=== PATIENT | female | born 1950 | race Caucasian/White ===

== ENCOUNTER 2017-04-10 11:53 | Inpatient (IN) | payer OTHER ==
--- NOTE | ~2017-04-10 | DS ---
Unit #: [id number] #: [id number] Patient: SELENA WALDEN [id number] [address] [place], [place] [address] [id number] I MR#: [id number] NAME: SELENA WALDEN ROOM: 453 Age: 66 Sex: F Admission Date: 04/10/2017 : 1950 Discharge Date: Attending Physician: Perri Levine M.D. Primary Care Physician: No Primary Care Physician DISCHARGE SUMMARY DISCHARGE DIAGNOSES 1. Fall with left hip fracture status post left hip cephalomedullary nail. 2. Postop acute blood loss anemia. 3. Hypokalemia. 4. History of rheumatoid lung with recurrent pleural effusion, following Dr. Mendiola. 5. Hyperlipidemia. 6. Hypertension. 7. History of intracranial aneurysm status post clipping. 8. History of lung nodule right base, following Dr. Mendiola. 9. History of thoracic 12 compression fracture. 10. Smoking. CONSULTATIONS 1. Dr. Mendiola. 2. Dr. Dowd. 3. Dr. Michael Su for cardiac clearance. PROCEDURES Patient had left hip cephalomedullary nail with Segundo natural nail. DIAGNOSTIC TESTING LAB DATA: Sodium 138, potassium 4, creatinine 0.5, calcium 8.3. WBC 6.7, hemoglobin 9.5, platelets 251. Urine culture is negative. ALLERGIES None. DISCHARGE MEDICATIONS 1. Lisinopril/Hydrochlorothiazide 20/12.5 mg 1 tablet p.o. daily. 2. Lovenox 40 mg subcu daily. Stop 04/25/2017. 3. Milk of Magnesia 30 mL q.6 p.r.n. constipation. 4. Lipitor 10 daily. 5. Allopurinol 300 daily. 6. Multivitamin 1 tablet daily. 7. Lortab 7.5 mg 1 tablet q.4 p.r.n. pain. 8. B complex capsule 1 capsule daily. HOSPITALIZATION COURSE A 66 year old admitted because of fall. Fall with left hip fracture. Patient was seen by Dr. Dowd. The patient had surgery. Currently patient is ambulating with physical therapy. They Unit #: [id number] #: [id number] Patient: SELENA WALDEN recommend home with home health. Acute postop blood loss anemia. Currently no active bleeding. Patient received blood transfusion. Hemoglobin 9.5. Hypokalemia. Replaced with p.o. potassium. History of COPD with lung nodule. Follow with Dr. Mendiola as an outpatient. DISCHARGE PLAN 1. Discharge home. 2. Follow with family physician in 1 week time. 3. Follow with Dr. Dowd in 2 weeks' time. 4. Weightbearing (1) as per orthopedics. 5. Patient will be discharged with home health. NOTE: Discharge time taken is 31 minutes. Dictated by... Radha Zavala TD: 04/15/2017 13:08 JOB #: [id number] DISCHARGE SUMMARY Page 1 of 1 X Perri Levine MD X DISCHARGE SUMMARY
--- NOTE | ~2017-04-10 | CO ---
Unit #: [id number] #: [id number] Patient: SELENA WALDEN [id number] [facility]. [place], [place] [address] [id number] I MR#: [id number] NAME: SELENA WALDEN ROOM: 94822 Age: 66 Sex: F Admission Date: 04/10/2017 : 1950 Attending Physician: Laura Nunez M.D. Primary Care Physician: No Primary Care Physician CONSULTATION REPORT REASON FOR CONSULTATION Cardiac clearance. 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 She denies ever having a myocardial infarction, cardiac cath, or a 2D echocardiogram. The patient has a past medical history of hypertension, hyperlipidemia, and a history of a brain coiling approximately 12 years ago. She does endorse that she smokes one pack of cigarettes per day. Patient states that she did have two falls today. The first fall occurred at home while she says she was in a hurry and got tripped up on her feet. She states that she fell, did not hit her head and was able to get up and felt like she had no injury. She did not lose consciousness, have a syncopal episode, or feel dizzy at that time. Later in the day while she was at work, she tripped while changing a cat water bowl. Again, she states that she just became tripped over her feet. She did not lose consciousness, experience any dizziness or syncope. She does report that she tripped over a pet approximately 10 years ago and broke both of her wrists. Patient currently denies any nausea, vomiting, fever, chills, chest pain, or shortness of air. She does state she is experiencing pain in her left hip. While in the emergency department, her vital signs were essentially stable. However, her blood pressure was 168/79 which likely can be attributed to pain. Her laboratory results were essentially normal. A urinalysis is pending. Chest x-ray showed findings consistent with a lung nodule. X-ray of her hip shows a fracture. Cardiology was consulted for clearance. PAST MEDICAL HISTORY 1. Brain aneurysm 12 years ago with coiling. 2. Hypertension. 3. Hyperlipidemia. 4. History of falls. PAST SURGICAL HISTORY 1. Repair of both of her wrists after a fall. 2. Brain aneurysm coiling. ALLERGIES No known allergies. HOME MEDICATIONS 1. Allopurinol 300 mg p.o. daily. Unit #: [id number] #: [id number] Patient: SELENA WALDEN 2. Atorvastatin 10 mg p.o. daily. 3. Zestoretic 10-12.5 mg one tab p.o. daily. 4. Mobic 15 mg p.o. daily. 5. Super B50 complex one cap p.o. daily. 6. Multivitamin one tab p.o. daily. FAMILY HISTORY Patient reports that her mother had rheumatic fever and had valvular heart issues. 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 She has been smoking one pack of cigarettes per day x52 years. She denies any alcohol or illicit drug abuse. REVIEW OF SYSTEMS A 10-point review of systems has been done and is considered otherwise negative unless indicated in the HPI. PHYSICAL EXAMINATION GENERAL: The patient is awake, alert in no acute distress. VITAL SIGNS: Temperature 97.2, heart rate 66, respirations 21, blood pressure 168/79. She is oxygenating 96% on room air. HEENT: Head is atraumatic, normocephalic. Pupils equal, round, reactive. Extraocular movements are intact. No drainage from ears or nares. Patient does wear glasses. NECK: Supple. Trachea is midline. No lymphadenopathy or thyromegaly is appreciated. Normal carotid upstrokes. Negative JVD. CHEST: Lungs are clear to auscultation bilaterally. No wheezes, rales, or rhonchi. CARDIOVASCULAR: S1, S2. Regular rate and rhythm. No murmurs, rubs, or gallops appreciated. ABDOMEN: Soft, nontender, nondistended. Bowel sounds are positive in all four quadrants. SKIN: Appears to be warm, dry, intact without any unusual rashes or lesions. EXTREMITIES: No clubbing or cyanosis. NEUROLOGIC: The patient is alert and oriented x4. She is pleasant, conversant. No focal deficits. DIAGNOSTIC STUDIES LABORATORY: White blood cells 18.8, hemoglobin 11.7, hematocrit 36.3, platelets 335,000. Sodium 135, potassium 3.7, chloride 105, CO2 of 25, BUN 16, creatinine 0.7, glucose 103. INR 1. Urinalysis is pending. IMAGING: Chest x-ray shows findings consistent with a lung nodule. X-ray of her left hip shows fracture. ASSESSMENT 1. Mechanical fall. 2. Left femur fracture. 3. Hypertension. 4. Hyperlipidemia. 5. History of intracranial aneurysm, status post coiling. 6. Leukocytosis, possibly reactive. 7. Anemia. 8. Tobaccoism. Unit #: [id number] #: [id number] Patient: SELENA WALDEN PLAN At this time, will check an EKG preop and postoperatively. Will trend cardiac enzymes q.6 hours x2. Will also check a troponin postoperatively. Will do a BMP, magnesium in the morning. Will check a TSH and lipid panel now. Will perform a 2D echocardiogram to evaluate left ventricular function. Dr. Su will see the patient to evan cardiac clearance. Dictated by... Esther Rich A.P.R.N. for Michael Su M.D. AM/michele TD: 04/10/2017 16:12 JOB #: [id number] CONSULTATION REPORT Page 1 of 1 X Esther Rich CAMPUS ADMINISTRATOR X CONSULTATION REPORT
--- NOTE | ~2017-04-10 | CO ---
Unit #: [id number] #: [id number] Patient: SELENA WALDEN [id number] [address] [place], [place] [address] [id number] I MR#: [id number] NAME: SELENA WALDEN ROOM: 453 Age: 66 Sex: F Admission Date: 04/10/2017 : 1950 Attending Physician: Francis Rich M.D. Primary Care Physician: No Primary Care Physician Consultation Date: 04/11/2017 CONSULTATION REPORT REASON FOR CONSULTATION Left intertrochanteric hip fracture. CHIEF COMPLAINT Left hip pain. HISTORY OF PRESENT ILLNESS Ms. Walden is a pleasant 66-year-old female who reports that she fell at work. She was handing a bowl of water to someone and caught tangled up with her legs. She fell onto the left hip directly onto her side. She was unable to bear weight. She was brought to the emergency room where x-rays were taken. She was noted to have a left hip intertrochanteric fracture. The patient denied loss of consciousness. She denies any other associated symptoms right now. She has pain in the left hip. It is worse with motion and better with rest. She (1) . She has no prior hip problems. PAST MEDICAL HISTORY 1. Hypertension. 2. Hyperlipidemia. 3. Lung disease. 4. Intracranial aneurysm. PAST SURGICAL HISTORY 1. Aneurysm coiling. 2. Bilateral wrist surgery. SOCIAL HISTORY The patient lives by herself. She does work. She does smoke a pack of cigarettes daily. She denies alcohol or drug use. FAMILY HISTORY Noncontributory. ALLERGIES No known drug allergies. HOME MEDICATIONS 1. Lisinopril. 2. Meloxicam. 3. Atorvastatin. 4. Aspirin. REVIEW OF SYSTEMS Unit #: [id number] #: [id number] Patient: SELENA WALDEN No other pertinent positives or negatives noted unless mentioned in HPI. She does report that she has had surgery in the past and is slow to awake from anesthesia. PHYSICAL EXAMINATION GENERAL APPEARANCE: The patient is alert and oriented for exam. No acute distress. VITAL SIGNS: Temperature 97.6 degrees Fahrenheit. Pulse 74. Respiratory rate 16. Oxygen saturation 98%. Blood pressure 111/68. HEENT: Head is atraumatic, normocephalic. Extraocular movements intact. Mucous membranes moist. CERVICAL SPINE: Midline with no JVD. Full motion. LUNGS: Breathing nonlabored. Chest rise symmetric. PULSE: Regular rate and rhythm. ABDOMEN: Soft, nontender, nondistended. EXTREMITIES: No clubbing, cyanosis or edema of the extremities. No skin lesions. A focused exam of the left lower extremity reveals that it is shortened and externally rotated. Positive log roll. Tenderness to palpation over the hip region. Limited motion in the hip secondary to pain. Pulses intact and normal motor and sensory exam for the left lower extremity. DIAGNOSTIC STUDIES LABORATORY: BMP normal. INR 1.0. Hemoglobin 9.7. IMAGING: AP pelvis and left lateral hip x-ray reviewed. She has an intertrochanteric hip fracture. This is closed and displaced. ASSESSMENT A 66-year-old female with a closed left hip intertrochanteric displaced fracture. PLAN The patient is currently NPO. She is awaiting clearance. We have her on our schedule for 3 p.m. today for a left hip cephalomedullary nail. This was discussed with the patient. Risks, benefits and alternatives to surgery discussed. Risks include but not limited to infection, bleeding, nerve injury, blood clots, risk associated with anesthesia, need for surgery, persistent pain, possibly . She would like to proceed accordingly. She will remain NPO in the meantime and hold any anticoagulation. Dictated by... Patricio Dowd M.D. LAURIE/laurie TD: 04/11/2017 09:13 JOB #: [id number] Unit #: [id number] #: [id number] Patient: SELENA WALDNE CONSULTATION REPORT Page 1 of 1 X X CONSULTATION REPORT
--- NOTE | ~2017-04-10 | CR72 ---
[facility] A Service of [facility] RADIOLOGY TEXT RESULTS PATIENT: SELENA WALDEN LOCATION: [facility] : [birth year] UNIT #: [id number] AGE: [address]: Francis Rich MD SEX: F ORDER DR: [id number] [facility] [address] [place], [place] [address] [id number] I MR#: [id number] Acc #: [id number] NAME: SELENA WALDEN : 1950 SEX: F STUDY DATE/TIME: 04/10/2017 13:13 UNIT: [facility] ROOM: [facility] STUDY DESCRIPTION: CR Chest Single View Portable Attending Physician: Laura Nunez M.D. Ordering Physician: Tracey Pimentel M.D. Primary Care Physician: No Primary Care Physician MEDICAL IMAGING REPORT This report is preliminary unless electronic signature is present EXAM Portable chest. DATE OF EXAM 04/10/2017 CLINICAL HISTORY Short of air today. FINDINGS There is opacity at the right lateral lung base. This may represent effusion and/or scarring, though a nodule at the right base can't be excluded. Additional pulmonary nodular densities are seen on the left, though these appear likely to represent calcified granulomas, not substantially changed since May 2009. There is no pneumothorax or other infiltrate. Heart size is normal. There is a T12 compression fracture, probably new since the prior study, though age indeterminant. Dictated by... Magen Meraz M.D. THIS IS AN ELECTRONICALLY VERIFIED REPORT Magen Meraz M.D. at 04/11/2017 3:54 PM TEV/jitzel TD: 04/10/2017 17:35 JOB #: [id number] MEDICAL IMAGING REPORT [facility] A Service [facility] RADIOLOGY TEXT RESULTS PATIENT: SELENA WALDEN LOCATION: [facility] : 48 UNIT #: [id number] AGE: [address]: Francis Rich MD SEX: F ORDER DR: Page 1 of 1 COPY
--- NOTE | ~2017-04-10 | CO ---
Unit #: [id number] #: [id number] Patient: SELENA WALDEN [id number] [facility] [address] [facility]. [place], [place] [address] [id number] I MR#: [id number] NAME: SELENA WALDEN ROOM: 453 Age: 66 Sex: F Admission Date: 04/10/2017 : 1950 Attending Physician: Francis Rich M.D. Primary Care Physician: No Primary Care Physician Consultation Date: 04/10/2017 CONSULTATION REPORT Ms. Walden is a pleasant lady with a history of rheumatoid lung we have been seeing in the office. Patient has had full surgery in the remote past including surgery of carpal tunnel release. The patient was doing okay, she fell although this morning at home. When she got to work she was trying to feed cats and she tripped over herself, fell and fractured left femur. The patient has been admitted, placed on bedrest. We have been asked to see for pulmonary clearance. PAST MEDICAL HISTORY Significant for [facility] admission for intracranial aneurysm and underwent coiling with Dr. Moon, hypertension, hyperlipidemia, rheumatoid lung with recurrent pleural effusion. PAST SURGICAL HISTORY Significant for aneurysm coiling, bilateral wrist surgery. SOCIAL HISTORY Patient lives alone. 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 Smokes a pack of cigarettes daily. Denies alcohol or illicit drug use. CODE STATUS A full code. FAMILY HISTORY Notable for rheumatic fever in her mother. ALLERGIES Patient has no known allergies. HOME MEDICATIONS Allopurinol 1 tablet by mouth every day; atorvastatin 10 mg every day; chlorhexidine oral rinse swish and swallow as needed; hydrocodone acetaminophen 1-2 tablets as needed; lisinopril hydrochlorothiazide 10/12.5 mg tablets every day; meloxicam 50 mg daily 1 as needed for pain. REVIEW OF SYSTEMS Patient has a review of systems that is positive for some lack of chest pain. No cough. No cold. No fevers. No chills. No runny nose. Patient is feeling kind of weak, fell in the morning when she was bending over, again fell right after bending over. Patient has never had a cardiac catheterization and has never seen a whiskey proof reader. Patient does state that she has been "slow to wake" from anesthesia. PHYSICAL EXAMINATION Unit #: [id number] #: [id number] Patient: SELENA WALDEN VITAL SIGNS: T. current 98.0, pulse 75, respiratory 21, blood pressure 111/70. Satting 95%, 2 L nasal cannula. CHEST: Shows decreased breath sounds bilaterally. CARDIOVASCULAR: Regular rate, no gallop. ABDOMEN: Soft, nontender, and nondistended. EXTREMITIES: Shows no evidence of edema. DIAGNOSTIC STUDIES LABORATORY DATA: CK, CK-MB and troponin are all normal. CK total is a little elevated at 147. Urinalysis only shows urobilinogen. White count 18.8, hemoglobin 11.7, platelets of 335. TSH 1.37. IMAGING STUDIES: Chest single view shows effusion right lateral lung base granulomas. No pneumothorax. T12 compression fracture. ASSESSMENT AND PLAN 1. Patient is a moderate risk for this procedure. I believe that the patient benefits certainly outweigh the risks and therefore, we should proceed. However, the patient's respiratory postop failure is approximately 4%, 3.85% in BOOP index, 4.2% using (1) . (2) risk index shows a 13.3% risk of total respiratory complications including and requiring increased oxygen. Recommending that she proceed with this surgery. 2. History of rheumatoid lung. Patient is not on inhalers at home. I am going to put her on scheduled nebs here to help her expectorate and I'm going to do flutter valve every two hours. If patient is carefully observed postoperatively, hopefully she should recover without too much trouble. Dictated by... Radha Adames/christian TD: 04/11/2017 11:55 JOB #: [id number] CONSULTATION REPORT Page 1 of 1 X Vasiliy Mendiola MD X CONSULTATION REPORT
--- NOTE | ~2017-04-10 | HP ---
Unit #: [id number] #: [id number] Patient: SELENA WALDEN [id number] [facility]. [place], [place] [address] [id number] I MR#: [id number] NAME: SELENA WALDEN ROOM: 56213 Age: 66 Sex: F Admission Date: 04/10/2017 : 1950 Attending Physician: Laura Nunez M.D. HISTORY AND PHYSICAL CHIEF COMPLAINT Left hip pain post fall. HISTORY OF PRESENT ILLNESS The patient is a 66-year-old female with a past medical history of hypertension, hyperlipidemia, rheumatoid lung, and intracranial aneurysm, who presented to the emergency department for evaluation of the above. The patient states that she was in her usual state of health until the morning of admission when she fell at work. She states that she was handing a bowl of water to someone and got "tangled up" in her legs. She fell and experienced the immediate onset of left hip pain. She was unable to bear weight. She denied any loss of consciousness. She was brought to the emergency department for further evaluation. In the emergency department, imaging confirmed a left femur fracture. She is being admitted to [facility] for evaluation and further treatment. PAST MEDICAL HISTORY 1. Admission to [facility] approximately 10 years ago for intracranial aneurysm. She underwent coiling during that admission by Dr. Moon. 2. Hypertension. 3. Hyperlipidemia. 4. Rheumatoid lung followed by Dr. Mendiola with history of recurrent pleural effusion. PAST SURGICAL HISTORY 1. Aneurysm coiling. 2. Bilateral wrist surgery. SOCIAL HISTORY The patient lives alone. 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 She smokes a pack of cigarettes daily. She denies alcohol or illicit drug use. Her code status is a Full Code. FAMILY HISTORY Notable for her mother having rheumatic fever and dying at the age of 36. ALLERGIES No known allergies. HOME MEDICATIONS Unit #: [id number] #: [id number] Patient: SELENA WALDEN 1. Lisinopril. 2. Meloxicam. 3. Atorvastatin. 4. Aspirin. Home medications will need to be reviewed and verified. REVIEW OF SYSTEMS A complete review of systems is negative except as indicated in the History of Present Illness. The patient denies any chest pain and no cough or cold symptoms. She states that she did actually fall this morning prior to leaving home. She states that she was "rushing around." She was putting puppy pads on the floor for her dogs and somehow fell. She denies any feelings of lightheadedness. She states that there was no loss of consciousness at that time either. She proceeded to go to work. She did not have breakfast. She states that she never eats breakfast. She has had an issue in the past being "slow to wake" from anesthesia. She has lost a few pounds due to recent dentures. The patient denies ever having a stress test, and she has never had a cardiac catheterization. She denies ever seeing a net washer. PHYSICAL EXAMINATION VITAL SIGNS: Temperature is 97.2, pulse 66, respirations 21, blood pressure 168/79, and oxygen saturation is 96% on room air. GENERAL: Patient is a very pleasant female who is awake, alert, and in no acute distress. HEENT: Head is atraumatic. Mucous membranes are moist. NECK: Supple. Trachea is midline. CARDIOVASCULAR: Regular rate and rhythm. LUNGS: Clear to auscultation bilaterally with no increased work of breathing. ABDOMEN: Soft and nontender with bowel sounds present in all four quadrants. EXTREMITIES: The left lower extremity is tender to palpation in the hip area. She has decreased range of motion secondary to pain. There is no pedal edema. NEUROLOGIC: Patient is awake and alert. She follows commands. PSYCHIATRIC: Mood and affect are normal. Patient is cooperative. SKIN: Skin of examined areas is warm and dry. DIAGNOSTIC STUDIES LABORATORY: Complete blood count notable for white blood cell count of 18.8 and hemoglobin and hematocrit 11.7 and 36.3, respectively. INR is 1. Comprehensive metabolic panel notable for alkaline phosphatase of 95. IMAGING: Left hip x-ray shows an intertrochanteric fracture of the left femur. Chest x-ray shows an opacity in the right base concerning for possible scarring versus nodule. There is also a T12 compression fracture that is age indeterminant. ASSESSMENT The patient is a 66-year-old female with: 1. Left femur fracture. 2. Status post fall. 3. Leukocytosis likely stress related. 4. Normocytic anemia. The patient's hemoglobin is 11.7 with no baseline for comparison. 5. Hypertension. Unit #: [id number] #: [id number] Patient: SELENA WALDEN 6. Hyperlipidemia. 7. History of rheumatoid lung with recurrent pleural effusion, followed by Dr. Mendiola. 8. History of intracranial aneurysm, status post clipping. 9. Lung nodule, right base. 10. T12 compression fracture age indeterminant. 11. Tobacco abuse. PLAN 1. Admit to med/surg. 2. N.p.o. after midnight for surgical intervention. 3. Consult Dr. Rivera regarding left femur fracture. 4. Check urinalysis with culture and sensitivity. 5. EKG as part of preoperative evaluation. 6. Bedrest. 7. Fall precautions. 8. Consult Dr. Su for cardiac clearance. 9. Consult Dr. Mendiola for pulmonary clearance and regarding lung nodule. 10. P.r.n. morphine. 11. P.r.n. Zofran. 12. Supplemental oxygen. 13. Blood cultures x2 for further evaluation of leukocytosis. 14. Repeat labs in the morning. 15. Regarding code status, the patient is a Full Code. 16. Additional workup and consultants based on above. 1. Dictated by Radha Baxter/sara TD: 04/10/2017 15:36 JOB #: [id number] HISTORY AND PHYSICAL Page 1 of 1 X Laura Nunez MD HISTORY AND PHYSICAL
--- NOTE | ~2017-04-10 | CR150 ---
[facility] A Service of [facility] RADIOLOGY TEXT RESULTS PATIENT: SELENA WALDEN LOCATION: [facility] 453 : 48 UNIT #: [id number] AGE: [address]: Francis Rich MD SEX: F ORDER DR: [id number] [facility] [address] [place], [place] [address] [id number] I MR#: [id number] Acc #: [id number] NAME: SELENA WALDEN : 1950 SEX: F STUDY DATE/TIME: 04/11/2017 17:12 UNIT: [facility] ROOM: [facility] STUDY DESCRIPTION: CR Hip Min 2 Views Lt Attending Physician: Francis Rich M.D. Ordering Physician: Patricio Dowd M.D. Primary Care Physician: Primary Care Physician No MEDICAL IMAGING REPORT This report is preliminary unless electronic signature is present EXAM Left hip series 04/11/2017 HISTORY Pain. Left hip gamma nail in OR [address] Dow[address]. FLUOROSCOPY TIME 54 seconds. 4 fluoroscopic spot images. FINDINGS 4 intraoperative fluoroscopic spot images show patient undergoing open reduction internal fixation of mildly comminuted left intertrochanteric fracture. Dominant fracture fragments in near anatomic alignment. The lesser trochanter fragment shows stable mild distraction from the femoral shaft. There has been placement of an intramedullary anmol, distal transverse fixation screw and longitudinal dynamic screw in the femoral neck/head. There is air in the operative bed. No new bony abnormalities are seen. Please see operative report for full procedural details. Dictated by... Danie Baird M.D. THIS IS AN ELECTRONICALLY VERIFIED REPORT Danie Baird M.D. at 04/14/2017 8:20 PM MADALYN/allyssa TD: 04/12/2017 07:31 JOB #: [id number] MEDICAL IMAGING REPORT [facility] A Service of [facility] RADIOLOGY TEXT RESULTS PATIENT: SELENA WALDEN LOCATION: [facility] 453 : 48 UNIT #: [id number] AGE: [address]: Francis Rich MD SEX: F ORDER DR: Page 1 of 1 COPY
--- NOTE | ~2017-04-10 | EKG ---
PATIENT: SELENA WALDEN UNIT #: [id number] Ventricular Rate: 68 BPM Atrial Rate: 68 BPM P-R Interval: 166 ms QRS Duration: 80 ms Q-T Interval: 440 ms QTC Calculation(Bezet): 467 ms P [place]: 83 degrees Calculated R [place]: 73 degrees Calculated T [place]: 52 degrees Diagnosis Line: Normal sinus rhythm Diagnosis Line: Normal ECG Diagnosis Line: No previous ECGs available Diagnosis Line: Confirmed by MEHRAN BATISTA MD ([id number]) on 04/11/2017 Diagnosis Line: 8:01:57 PM INTERPRETING MD: LESTER HENNING
--- NOTE | ~2017-04-10 | EKG ---
PATIENT: SELENA WALDEN UNIT #: [id number] Ventricular Rate: 78 BPM Atrial Rate: 78 BPM P-R Interval: 148 ms QRS Duration: 82 ms Q-T Interval: 364 ms QTC Calculation(Bezet): 414 ms P [place]: 67 degrees Calculated R [place]: 61 degrees Calculated T [place]: 72 degrees Diagnosis Line: Normal sinus rhythm Diagnosis Line: Nonspecific T wave abnormality Diagnosis Line: Otherwise normal ECG Diagnosis Line: When compared with ECG of 10-APR-2017 12:54, Diagnosis Line: (unconfirmed) Diagnosis Line: Nonspecific T wave abnormality now evident in Diagnosis Line: Lateral leads Diagnosis Line: QT has shortened Diagnosis Line: Confirmed by MEHRAN BATSITA MD ([id number]) on 04/11/2017 Diagnosis Line: 8:11:41 PM INTERPRETING MD: LESTER HENNING
--- NOTE | ~2017-04-10 | OR ---
Unit #: [id number] #: [id number] Patient: SELENA WALDEN [id number] [address] [place], [place] [address] [id number] I MR#: [id number] NAME: SELENA WALDEN ROOM: [facility] Date of Procedure: 04/11/2017 Admission Date: 04/10/2017 Surgeon: Patricio Dowd M.D. : 1950 Attending Physician: Francis Rich M.D. OPERATIVE REPORT PREOPERATIVE DIAGNOSIS Left closed intertrochanteric hip fracture. POSTOPERATIVE DIAGNOSIS Left closed intertrochanteric hip fracture. PROCEDURE PERFORMED Left hip cephalomedullary nail with Segundo natural nail. 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 ANESTHESIA General with LMA. COMPLICATIONS None. SPECIMENS None. DRAINS None. SURGICAL IMPLANTS Segundo natural nail, short, 10 mm diameter, 125 degree neck shaft angle. INDICATION FOR PROCEDURE Ms. Walden is a pleasant 66-year-old female, who fallen onto her left hip resulting in intertrochanteric hip fracture. She was unable to bear weight. X-rays confirmed the fracture. She was admitted to the hospitalist. She was cleared for surgery. It was felt she would benefit from left hip cephalomedullary nail. Risks, benefits, and alternatives of surgery were discussed with the patient. Informed consent was obtained. Risks include, but not limited to, infection, bleeding, nerve injury, blood clots, risks associated with anesthesia, need for further surgery, and possibly . DESCRIPTION OF PROCEDURE On 04/11/2017, the patient was seen in preoperative holding area, where her surgical site was marked. Preoperative antibiotics were received. H and P and consent updated. The patient was taken to the operating room Unit #: [id number] #: [id number] Patient: SELENA WALDEN and provided general anesthesia. She was carefully moved to the fracture table. All bony prominences were well padded. Left hip was placed in traction. It was reduced using fluoroscopy to confirm this. It was then prepped and draped in typical sterile fashion. Time-out performed confirming the correct surgical site and procedure. A longitudinal incision was made just proximal to greater trochanter. Incision was taken down through the skin and subcutaneous tissue. The starting awl placed on the tip of the trochanter and inserted into the femur. A long ball-tipped guidewire inserted down the femur. We checked on both AP and lateral planes. Starting reamer placed over the guidewire. Next, flexible reamers were taken up to 12 mm. The nail was assembled on the back table. It was then inserted down the canal and the femur to the appropriate depth. A second incision was made for the hip screw. The guide was placed down the bone. Guidewire placed into the center-center position of the femoral head on both AP and lateral planes. It was measured and reamed. The hip screw was placed. Compression was then placed across the fracture site. The set screw was placed and locked in standard fashion. Focus was now placed distally for a static locking screw. A third incision was made. Guide placed onto the bone. A drill was taken both bicortically followed by measuring and placement of the screw. All instruments were removed. Final AP and lateral x-rays were taken confirming appropriate reduction of fracture and placement of hardware. Wounds were thoroughly irrigated. Tissue closed with 2-0 Vicryl followed by amarilys for skin. Xeroform, 4x4s, ABD pad, and tape were placed. The patient was subsequently awakened from general anesthesia in stable condition and taken to PACU postoperatively. POSTOPERATIVE PLAN The patient will be weightbearing as tolerated with physical therapy. She will be on Lovenox for 14 days for DVT prophylaxis. She will have standard 24 hours antibiotic protocol. She will have SCDs. No complications encountered during the surgical procedure. Dictated by... Patricio Dowd M.D. LAURIE/micah TD: 04/12/2017 02:39 JOB #: [id number] OPERATIVE REPORT Page 1 of 1 X X PROCEDURE OPERATIVE NOTE
--- NOTE | ~2017-04-10 | CR150 ---
[facility] A Service of [facility] RADIOLOGY TEXT RESULTS PATIENT: SELENA WALDEN LOCATION: [facility] 453-01 : [birth year] UNIT #: [id number] AGE: [address]: Francis Rich MD SEX: F ORDER DR: [id number] [facility] [address] [place], [place] [address] [id number] I MR#: [id number] Acc #: [id number] NAME: SELENA WALDEN : 1950 SEX: F STUDY DATE/TIME: 04/10/2017 13:14 UNIT: B ROOM: [facility] STUDY DESCRIPTION: CR Hip Min 2 Views Lt Attending Physician: Laura Nunez M.D. Ordering Physician: Tracey Pimentel M.D. Primary Care Physician: No Primary Care Physician MEDICAL IMAGING REPORT This report is preliminary unless electronic signature is present EXAM AP pelvis and crosstable view, left hip. HISTORY Pain after fall today. FINDINGS There is a common comminuted and varus and posterior angulated intertrochanteric left femoral fracture without dislocation. There is osteopenia and lower lumbar degenerative change as well. Dictated by... Magen Meraz M.D. THIS IS AN ELECTRONICALLY VERIFIED REPORT Magen Meraz M.D. at 04/11/2017 3:54 PM ELIZABETH/ned TD: 04/10/2017 17:27 JOB #: [id number] MEDICAL IMAGING REPORT Page 1 of 1 COPY
--- NOTE | ~2017-04-10 | EKG ---
PATIENT: SELENA WALDEN UNIT #: [id number] Ventricular Rate: 82 BPM Atrial Rate: 82 BPM P-R Interval: 154 ms QRS Duration: 90 ms Q-T Interval: 470 ms QTC Calculation(Bezet): 549 ms P [place]: 63 degrees Calculated R [place]: 66 degrees Calculated T [place]: 80 degrees Diagnosis Line: Normal sinus rhythm Diagnosis Line: Nonspecific ST and T wave abnormality Diagnosis Line: Prolonged QT Diagnosis Line: Abnormal ECG Diagnosis Line: When compared with ECG of 11-APR-2017 12:11, Diagnosis Line: QT has lengthened Diagnosis Line: Confirmed by QUEENIE GAGNON MD ([id number]) on Diagnosis Line: 04/14/2017 8:34:57 AM INTERPRETING MD: CHELSI HENNING
[2017-04-10 14:01] LABS: BASOPHIL# 0.1 X10e3 (0-0.3); BASOPHIL% 0.4 % (0-2.5); EOSINOPHIL% 0.2 % (0.0-7.0); HEMATOCRIT 36.3 % (35.0-45.0); HEMOGLOBIN 11.7 gm/dL (12.0-16.0); LYMPHOCYTE# 1.5 X10e3 (1.0-3.5); LYMPHOCYTE% 7.9 % (17.0-45.0); MEAN CELL VOLUME 93.5 FL (83-96); MEAN CORPUSCULAR HGB CONC 32.1 g/dL (30-36); MEAN PLATELET VOLUME 8.9 FL (6.5-11.5); MONOCYTE# 0.7 X10e3 (0-1.0); NEUTROPHIL# 16.5 X10e3 (1.5-7.1); NEUTROPHIL% 87.5 % (40-75); PLATELET COUNT 335 X10e3 (140-420); RED BLOOD COUNT 3.88 X10e (3.90-5.30); RED CELL DISTRIBUTION WIDTH 13.8 % (11.0-15.5); WHITE BLOOD COUNT 18.8 X10e3 (4.0-10.5)
[2017-04-10 14:05] LABS: DIFF IND YES
[2017-04-10 14:09] LABS: PARTIAL THROMBOPLASTIN TIME 24.9 SECONDS (23.5-31.3); PROTHROMBIN TIME (PATIENT) 10.1 SECONDS (9.6-11.5)
[2017-04-10 14:31] LABS: ALBUMIN SERUM 3.7 g/dL (3.5-5.0); BILIRUBIN, DIRECT 0.1 mg/dL (0.0-0.2); BILIRUBIN,INDIRECT 0.3 mg/dL (0.0-0.9); BILIRUBIN,TOTAL 0.4 mg/dL (0.2-2.0); BUN/CREATININE RATIO 22.85; CREATININE SERUM 0.7 mg/dL (0.6-1.4); POTASSIUM 3.7 mmol/L (3.5-5.1)
[2017-04-10] MEDS ORDERED: PATIENT'S PHARMACY (14:39)
[2017-04-10 14:46] LABS: ANISOCYTOSIS SL; PLATELET ESTIMATE NORMAL (NORMAL)
[2017-04-10 15:00] LABS: URINE SOURCE CLEAN CATCH
[2017-04-10 15:05] LABS: URINE APPEARANCE CLEAR; URINE BILIRUBIN NEG (NEG); URINE BLOOD NEG (NEG); URINE COLOR YELLOW; URINE GLUCOSE NEG (NEG); URINE KETONE NEG (NEG); URINE LEUKOCYTE ESTERASE NEG (NEG); URINE NITRATE NEG (NEG); URINE PH 5.5 (5-8); URINE PROTEIN NEG (NEG); URINE SPECIFIC GRAVITY 1.018 (1.003-1.035); URINE UROBILINOGEN 0.2 MG/DL (NEG)
[2017-04-10 15:10] LABS: CULTURE INDICATED? NO
[2017-04-10] MEDS ORDERED: ALLOPURINOL300 MG PO (15:13)
[2017-04-10] MEDS ORDERED: ATORVASTATIN CA10 MG PO (15:14)
[2017-04-10] MEDS ORDERED: IBUPROFEN800 MG PO (15:16)
[2017-04-10] MEDS ORDERED: HYDROCODON-ACE1 EAC7 PO (15:16)
[2017-04-10] MEDS ORDERED: MOBIC15 MG PO (15:17)
[2017-04-10] MEDS ORDERED: ZESTORETIC 20-1 EAC1 PO (15:17)
[2017-04-10] MEDS ORDERED: SUPER B-50 COM1 EACH PO (15:23)
[2017-04-10] MEDS ORDERED: MULTIVITAMINS1 EAC3 PO (15:23)
[2017-04-10 16:39] LABS: CHOLESTEROL 146 mg/dL (0-200); HDL CHOLESTEROL 49 mg/dL (35-95); LDL CHOLESTEROL 72 mg/dL (-130); LDL/HDL RATIO 1 RATIO (0-4); TRIGLYCERIDES 125 mg/dL (10-160)
[2017-04-10 17:08] LABS: %MB 2.4 % (0.0-4.0); MB 3.5 ng/ml
[2017-04-10 23:16] LABS: %MB 1.8 % (0.0-4.0); MB 2.3 ng/ml
[2017-04-11 03:41] LABS: BASOPHIL% 0.4 % (0-2.5); EOSINOPHIL% 0.3 % (0.0-7.0); HEMATOCRIT 28.9 % (35.0-45.0); LYMPHOCYTE# 1.7 X10e3 (1.0-3.5); LYMPHOCYTE% 18.4 % (17.0-45.0); MEAN CELL VOLUME 93.8 FL (83-96); MEAN CORPUSCULAR HEMOGLOBIN 31.5 PG (28-34); MEAN CORPUSCULAR HGB CONC 33.5 g/dL (30-36); MEAN PLATELET VOLUME 8.4 FL (6.5-11.5); MONOCYTE# 0.9 X10e3 (0-1.0); MONOCYTE% 9.4 % (3.0-12.0); NEUTROPHIL# 6.7 X10e3 (1.5-7.1); NEUTROPHIL% 71.5 % (40-75); PLATELET COUNT 275 X10e3 (140-420); RED BLOOD COUNT 3.08 X10e (3.90-5.30); RED CELL DISTRIBUTION WIDTH 13.8 % (11.0-15.5); WHITE BLOOD COUNT 9.4 X10e3 (4.0-10.5)
[2017-04-11 03:55] LABS: PROTHROMBIN TIME (PATIENT) 10.1 SECONDS (9.6-11.5)
[2017-04-11 04:01] LABS: DIFF IND NO; HEMOGLOBIN 9.7 gm/dL (12.0-16.0)
[2017-04-11 04:05] LABS: ALBUMIN SERUM 3.3 g/dL (3.5-5.0); BILIRUBIN,TOTAL 0.5 mg/dL (0.2-2.0); BUN/CREATININE RATIO 25.71; CALCIUM SERUM 8.2 mg/dL (8.4-10.2); CREATININE SERUM 0.7 mg/dL (0.6-1.4); PROTEIN TOTAL SERUM 6.2 g/dL (6.0-8.3)
[2017-04-11 14:30] LABS: CHOLESTEROL 125 mg/dL (0-200); HDL CHOLESTEROL 42 mg/dL (35-95); LDL CHOLESTEROL 66 mg/dL (-130); LDL/HDL RATIO 2 RATIO (0-4); TRIGLYCERIDES 85 mg/dL (10-160)
[2017-04-12 04:26] LABS: BASOPHIL# 0.1 X10e3 (0-0.3); BASOPHIL% 0.6 % (0-2.5); EOSINOPHIL% 0.1 % (0.0-7.0); HEMATOCRIT 22.3 % (35.0-45.0); LYMPHOCYTE# 1.7 X10e3 (1.0-3.5); LYMPHOCYTE% 17.9 % (17.0-45.0); MEAN CELL VOLUME 94.8 FL (83-96); MEAN CORPUSCULAR HGB CONC 32.7 g/dL (30-36); MEAN PLATELET VOLUME 8.7 FL (6.5-11.5); MONOCYTE# 0.9 X10e3 (0-1.0); NEUTROPHIL# 6.9 X10e3 (1.5-7.1); NEUTROPHIL% 72.4 % (40-75); PLATELET COUNT 195 X10e3 (140-420); RED BLOOD COUNT 2.36 X10e (3.90-5.30); RED CELL DISTRIBUTION WIDTH 13.6 % (11.0-15.5); WHITE BLOOD COUNT 9.6 X10e3 (4.0-10.5)
[2017-04-12 04:32] LABS: HEMOGLOBIN 7.3 gm/dL (12.0-16.0)
[2017-04-12 04:33] LABS: DIFF IND YES
[2017-04-12 04:41] LABS: BUN/CREATININE RATIO 21.42; CALCIUM SERUM 7.7 mg/dL (8.4-10.2); CREATININE SERUM 0.7 mg/dL (0.6-1.4); MAGNESIUM 1.7 mg/dL (1.6-3.0); POTASSIUM 3.8 mmol/L (3.5-5.1)
[2017-04-12 05:03] LABS: PLATELET ESTIMATE NORMAL (NORMAL)
[2017-04-12 05:06] LABS: OVALOCYTES PRESENT
[2017-04-12 05:07] LABS: ANISOCYTOSIS SL; ROULEAUX MODERATE
[2017-04-13 03:41] LABS: BASOPHIL# 0.1 X10e3 (0-0.3); BASOPHIL% 0.9 % (0-2.5); EOSINOPHIL# 0.1 X10e3 (0-0.7); EOSINOPHIL% 0.9 % (0.0-7.0); HEMATOCRIT 20.6 % (35.0-45.0); LYMPHOCYTE# 1.9 X10e3 (1.0-3.5); LYMPHOCYTE% 23.5 % (17.0-45.0); MEAN CELL VOLUME 94.7 FL (83-96); MEAN CORPUSCULAR HEMOGLOBIN 31.2 PG (28-34); MEAN PLATELET VOLUME 9.1 FL (6.5-11.5); MONOCYTE# 0.7 X10e3 (0-1.0); MONOCYTE% 8.2 % (3.0-12.0); NEUTROPHIL# 5.5 X10e3 (1.5-7.1); NEUTROPHIL% 66.5 % (40-75); PLATELET COUNT 191 X10e3 (140-420); RED BLOOD COUNT 2.18 X10e (3.90-5.30); RED CELL DISTRIBUTION WIDTH 13.2 % (11.0-15.5); WHITE BLOOD COUNT 8.3 X10e3 (4.0-10.5)
[2017-04-13 03:44] LABS: DIFF IND NO; HEMOGLOBIN 6.8 gm/dL (12.0-16.0)
[2017-04-13 04:00] LABS: CALCIUM SERUM 7.6 mg/dL (8.4-10.2); CREATININE SERUM 0.5 mg/dL (0.6-1.4); GLOM FILT RATE Estimated 99.5 mL/min (>60); POTASSIUM 3.3 mmol/L (3.5-5.1)
[2017-04-14 03:40] LABS: BASOPHIL# 0.1 X10e3 (0-0.3); BASOPHIL% 0.7 % (0-2.5); EOSINOPHIL# 0.2 X10e3 (0-0.7); EOSINOPHIL% 2.1 % (0.0-7.0); HEMATOCRIT 28.5 % (35.0-45.0); LYMPHOCYTE# 1.4 X10e3 (1.0-3.5); LYMPHOCYTE% 13.8 % (17.0-45.0); MEAN CORPUSCULAR HEMOGLOBIN 30.8 PG (28-34); MONOCYTE# 0.7 X10e3 (0-1.0); MONOCYTE% 6.7 % (3.0-12.0); NEUTROPHIL# 7.5 X10e3 (1.5-7.1); NEUTROPHIL% 76.7 % (40-75); PLATELET COUNT 229 X10e3 (140-420); RED BLOOD COUNT 3.15 X10e (3.90-5.30); RED CELL DISTRIBUTION WIDTH 14.4 % (11.0-15.5); WHITE BLOOD COUNT 9.8 X10e3 (4.0-10.5)
[2017-04-14 03:43] LABS: HEMOGLOBIN 9.7 gm/dL (12.0-16.0); MEAN CELL VOLUME 90.5 FL (83-96)
[2017-04-14 03:49] LABS: DIFF IND NO
[2017-04-14 04:04] LABS: CALCIUM SERUM 8.1 mg/dL (8.4-10.2); CREATININE SERUM 0.5 mg/dL (0.6-1.4); GLOM FILT RATE Estimated 99.5 mL/min (>60); POTASSIUM 3.4 mmol/L (3.5-5.1)
[2017-04-15 04:13] LABS: BASOPHIL# 0.1 X10e3 (0-0.3); BASOPHIL% 0.8 % (0-2.5); EOSINOPHIL# 0.1 X10e3 (0-0.7); HEMATOCRIT 28.3 % (35.0-45.0); HEMOGLOBIN 9.5 gm/dL (12.0-16.0); LYMPHOCYTE# 1.9 X10e3 (1.0-3.5); LYMPHOCYTE% 27.7 % (17.0-45.0); MEAN CELL VOLUME 90.7 FL (83-96); MEAN CORPUSCULAR HEMOGLOBIN 30.4 PG (28-34); MEAN CORPUSCULAR HGB CONC 33.5 g/dL (30-36); MEAN PLATELET VOLUME 7.8 FL (6.5-11.5); MONOCYTE# 0.7 X10e3 (0-1.0); MONOCYTE% 9.9 % (3.0-12.0); NEUTROPHIL% 59.6 % (40-75); PLATELET COUNT 251 X10e3 (140-420); RED BLOOD COUNT 3.12 X10e (3.90-5.30); RED CELL DISTRIBUTION WIDTH 14.5 % (11.0-15.5); WHITE BLOOD COUNT 6.7 X10e3 (4.0-10.5)
[2017-04-15 04:15] LABS: DIFF IND NO
[2017-04-15 04:37] LABS: CALCIUM SERUM 8.3 mg/dL (8.4-10.2); CREATININE SERUM 0.5 mg/dL (0.6-1.4); GLOM FILT RATE Estimated 99.5 mL/min (>60)
[2017-04-15] MEDS ORDERED: MILK OF MAGNESIA PO (10:32)
[2017-04-15] MEDS ORDERED: NORCO 7.5-3251 EACH PO (10:39)
[2017-04-15] MEDS ORDERED: LOVENOX40 MG/0.4 INJ (10:40)
== END 2017-04-15 17:21 | disposition home health service (06) | DRG 481 ==
LOC: CED 11:53 → CEDOF 14:50 → C4B 14:50 → CEDOF 14:56 → CED 14:56 → C4B 14:56 → CEDOF 16:55 → C4B 04-11 06:37
PROVIDERS: Emergency Medicine; Family Medicine; Internal Medicine; Nurse Practitioner; Orthopaedic Surgery
PROC: 0QH736Z Insertion of Intramedullary Internal Fixation Device into Left Upper Femur, Percutaneous Approach (ICD-10-PCS; principal; 2017-04-11 15:00)
DX: S72.142A Displaced intertrochanteric fracture of left femur, initial encounter for closed fracture (principal); D62 Acute posthemorrhagic anemia; M05.10 Rheumatoid lung disease with rheumatoid arthritis of unspecified site; J44.9 Chronic obstructive pulmonary disease, unspecified; W01.0XXA Fall on same level from slipping, tripping and stumbling without subsequent striking against object, initial encounter; Y93.89 Activity, other specified; Y92.9 Unspecified place or not applicable; Y99.0 Civilian activity done for income or pay; E87.6 Hypokalemia; E78.5 Hyperlipidemia, unspecified; I10 Essential (primary) hypertension; F17.210 Nicotine dependence, cigarettes, uncomplicated; D64.9 Anemia, unspecified; D72.829 Elevated white blood cell count, unspecified; Z82.49 Family history of ischemic heart disease and other diseases of the circulatory system
CPT/HCPCS: 36415; 51702; 71010; 73502; 76000; 80048; 80053; 80061; 80076; 81003; 82308; 82550; 82553; 83735; 84443; 84484; 85025; 85610; 85730; 86850; 86900; 86901; 86923; 87040; 87070; 87086; 87633; 93005; 93306; 94760; 94762; 96374; 96376; 97110; 97116; 97162; 97166; 97530; 97535; 99285; G8978-GP; G8979-GP; G8980-GP; G8987-GO; G8988-GO; G8989-GO; J0690; J1650; J2250; J2270; J2405; J3010; J3475; P9016